=== PATIENT | female | born 1960 | race Caucasian/White ===

== ENCOUNTER 2016-08-19 10:24 | Emergency (ER) | payer BC ==
--- NOTE | 2016-08-19 10:47 | CPEKG ---
Heart Rate: 66 RR Interval: 909 P-R Interval: 152 QRSD Interval: 92 QT Interval: 412 QTC Interval: 432 P [place]: 51 QRS [place]: 59 T Wave [place]: 36 EKG Severity - NORMAL ECG - EKG Impression: SINUS RHYTHM Electronically Signed By: Blayne Caba 19-Aug-2016 13:55:08
--- NOTE | 2016-08-19 10:50 | EDPHY ---
H & P Stated Complaint: EKG abnormality at Urgent care, dizzyiness. HPI/ROS: CHIEF COMPLAINT: Dizziness, reportedly abnormal EKG HISTORY OF PRESENT ILLNESS: Patient was driving this morning when she felt sudden onset of dizziness. This was a spinning, vertiginous scenario. Some nausea. No vomiting. No diaphoresis. No chest pain. No shortness of breath. Worse with change of position of her head. It has resolved at this time. This has happened twice this week. She had a procedure on Monday at an ear nose and throat physician, Dr. Wadsworth. This involved in her infusion of steroids due to right-sided hearing loss 10 days ago. She has had dizziness since then. She has had no chest pain of any kind over the past duration of the symptoms. She went to urgent care prior to this, and they reportedly obtain an abnormal EKG and sent her here. No other associated complaints or modifying factors. REVIEW OF SYSTEMS: Ten systems reviewed and are negative unless otherwise noted in the HPI PERTINENT MEDICAL HISTORY: Right-sided hearing loss, recent inner ear steroid infusion EXAMINATION General Appearance: Alert, no distress Head: normocephalic, atraumatic Eyes: Pupils equal and round, no conjunctival pallor or injection. EOMs intact. No nystagmus. ENT, Mouth: Mucous membranes moist Neck: Normal inspection, supple, non-tender Respiratory: Lungs are clear to auscultation. No wheezing, rhonchi or crackles. Cardiovascular: Regular rate and rhythm. No murmur. Pulses intact distally. Gastrointestinal: Abdomen is soft and nontender Back: non-tender, no bony abnormalities Neurological: GCS 15. A&O, nonfocal, normal gait, strength symmetric in all limbs. Skin: Warm and dry, no rash Extremities: Nontender, no pedal edema Psychiatric: Mood and affect normal DIFFERENTIAL DIAGNOSES: Including but not limited to vertigo, ACS, stroke, electrolyte disturbance, dizziness, dehydration MDM: 10:47 a.m. Dizziness 2 days after an injury ear treatment with steroid. This was sudden onset, worse with change of position. It has resolved. She has no chest pain of any kind. She was sent urgent care due to reportedly abnormal EKG. EKG here is unremarkable normal sinus rhythm. Vital signs are stable. I will consult her ear nose and throat physician to discuss her scenario. 10:55 a.m. I discussed the case with the patient's ENT PA, Linda Melvin. She informed me that while the dizziness is unlikely related to Wednesdays procedure, this is a reasonable complaint given the patient's ongoing scenario. She would like the patient follow up on Monday as scheduled. 11:05 a.m. EKG here is completely unremarkable. Normal sinus rhythm with no ischemia. The inverted T-wave from the previous urgent care EKG is not appreciated here. She has no chest pain of any kind. She has dizziness that is explained by her previous complaints of ongoing vertigo. She will be discharged home stable condition. No further workup here. The patient and spouse are comfortable with this plan. She is to return to the ER should she have any onset of any chest pain. EKG: Interpreted by Dr. Caba Normal sinus rhythm with no ST depression or T-wave inversion of this in AVR. No ischemia. SUPERVISION: This patient was independently evaluated without direct examination by the attending physician. Case was discussed with attending physician. Case discussed with Dr. Caba Source: Patient, Family Exam Limitations: No limitations - Personal History Current Tetanus/Diphtheria Vaccine: Unsure Current Tetanus Diphtheria and Acellular Pertussis (TDAP): Unsure - Medical/Surgical History Hx Asthma: No Hx Chronic Respiratory Disease: No Hx Diabetes: No Hx Cardiac Disease: No Hx Renal Disease: No Hx Cirrhosis: No Hx Alcoholism: No Hx HIV/AIDS: No Hx Splenectomy or Spleen Trauma: No Other PMH: Inner ear issues-?viral. - Social History Smoking Status: Never smoked Constitutional: Initial Vital Signs Temperature (C) 97.7 F 08/19/16 10:25 Heart Rate 78 08/19/16 10:25 Respiratory Rate 16 08/19/16 10:25 Blood Pressure 177/81 H 08/19/16 10:25 O2 Sat (%) 98 08/19/16 10:25 O2 Delivery Mode Room Air Allergies/Adverse Reactions: No Known Allergies Allergy (Unverified 08/19/16 10:29) Home Medications: Medication Instructions Recorded Meclizine HCl [Meclizine HCl 25 mg 25 mg PO BID #0 tab 08/19/16 (RX,OTC)] Departure - Departure Disposition: Home, Routine, Self-Care Clinical Impression: Dizziness Condition: Good Instructions: Vertigo (ED) Additional Instructions: Follow-up with ENT physician as discussed. Return to ER for worsening symptoms or any onset of chest pain of any kind Referrals: Karen Merchant MD [Primary Care Provider] - As per Instructions Prescriptions: Meclizine HCl [Meclizine HCl 25 mg (RX,OTC)] 25 mg PO BID #0 tab
[2016-08-19 11:29] VITALS: BP 113/72; PULSE 71; RESP 18; TEMP 98.1; O2SAT 96
== END 2016-08-19 11:27 | disposition home or self-care (01) ==
DX: R42 Dizziness and giddiness (principal)

== ENCOUNTER → 2018-07-23 | Outpatient (CLI) | payer BC | LOC: FIMAGING 13:46 | PROVIDERS: ATTEND Family Medicine | DX: Z12.31 Encounter for screening mammogram for malignant neoplasm of breast (principal) ==